=== PATIENT | male | born 1955 | race Caucasian/White ===

== ENCOUNTER 2017-06-06 05:00 | Inpatient (IN) ==
[2017-05-31 13:15] LABS: Appearance,Urine CLEAR; Bilirubin,Urine NEG (NEG); Color,Urine YELLOW; Glucose,Urine (UA) NEGATIVE (NEG); Leukocyte Esterase,Urine NEG /uL (NEG); Nitrate,Urine NEG (NEG); Protein,Urine NEG (NEG); Specific Gravity,Urine 1.014 (1.000-1.035); Urine Blood NEG mg/dL (<0.03); Urobilinogen,Urine NEG (NEG)
[2017-05-31 13:22] LABS: Basophils # (Auto) 0.1 K/mcL (0.0-0.3); Basophils % (Auto) 0.6 % (0.0-2.0); Eosinophils # (Auto) 0.3 K/mcL (0.0-0.7); Eosinophils % (Auto) 3.3 % (0.0-7.0); Granulocytes % (Auto) 60.2 % (38.0-78.0); Lymphocytes # (Auto) 2.3 K/mcL (1.5-4.8); Lymphocytes % (Auto) 26.6 % (15.5-49.0); Mean Cell Volume 93.4 fL (80.0-100.0); Mean Corpuscular Hemoglobin 31.8 pg (26.0-34.0); Monocytes # (Auto) 0.8 K/mcL (0.1-0.9); Monocytes % (Auto) 9.3 % (1.0-12.0); Platelet Count 274 K/mcL (140-440); RBC 4.83 M/mcL (4.50-5.90); Red Cell Distribution Width 12.4 % (11.5-14.5)
[2017-05-31 13:28] LABS: Blood Urea Nitrogen 13 mg/dl (8-23)
[~2017-06-06 05:00] MED LIST: CELECOXIB 200 MG CAPSULE PO SCH; PREGABALIN 75 MG CAPSULE PO SCH; ceFAZolin 1 GM VIAL IV SCH; oxyCODONE 10 MG TAB.ER.12H PO SCH
[2017-06-06] MEDS ORDERED: PHENYLEPHRINE 10 MG/ML VIAL IV ONE (07:35)
[2017-06-06] MEDS ORDERED: TRANEXAMIC ACID 1,000 MG/10 ML VIAL IV ONE (07:35)
[2017-06-06] MEDS ORDERED: PROPOFOL 200 MG/20 ML VIAL IV ONE (07:35)
[2017-06-06] MEDS ORDERED: LIDOCAINE HCL/PF 100 MG/5 ML SYRINGE IV ONE (07:35)
[2017-06-06] MEDS ORDERED: DEXAMETHASONE 10 MG/ML VIAL IV ONE (07:35)
[2017-06-06] MEDS ORDERED: ONDANSETRON 4 MG/2 ML VIAL IV ONE (07:35)
[2017-06-06] MEDS ORDERED: MIDAZOLAM 2 MG/2 ML VIAL IV ONE (07:35)
[2017-06-06] MEDS ORDERED: HEPARIN 10,000 UNIT/ML VIAL IR ONE (08:12)
--- NOTE | 2017-06-06 09:05 | Brief Operative Note ---
Date of procedure: 06/06/17 Pre-op diagnosis: Left hip severe DJD Post-op diagnosis: same Procedure: Left total hip arthroplasty Grafts/Implants: Yes (Depuy Trilock 4 std stem, +1.5 36 delta head, 52 cup, neutral altrx liner) Anesthesia: spinal, GLMA Findings: arthritis Complications: none Surgeon: Jose Roberto Willis Head Packager: Caden Cline Estimated blood loss (cc): 100 Specimens Removed/Pathology: none sent Condition: stable Disposition: PACU
[2017-06-06] MEDS ORDERED: POLYETHYLENE GLYCOL 3350 17 GM PACKET PO PRN (09:10)
[2017-06-06] MEDS ORDERED: FLEETS ADULT ENEMA PR PRN (09:10)
[2017-06-06] MEDS ORDERED: ONDANSETRON 4 MG/2 ML VIAL IV PRN ×2 (09:10→09:26)
[2017-06-06] MEDS ORDERED: BISACODYL 10 MG SUPP.RECT PR PRN (09:10)
[2017-06-06] MEDS ORDERED: KETOROLAC 30 MG/ML VIAL IV PRN (09:10)
[2017-06-06] MEDS ORDERED: HYDROmorphone 2 MG/ML SYRINGE IV PRN (09:10)
[2017-06-06] MEDS ORDERED: BENZOCAINE/MENTHOL 1 LOZENGE PO PRN ×2 (09:10→09:26)
[2017-06-06] MEDS ORDERED: MAGNESIUM HYDROXIDE 30 ML ORAL.SUSP PO PRN (09:10)
[2017-06-06] MEDS ORDERED: TRANEXAMIC ACID 1,000 MG/10 ML VIAL IV SCH (09:10)
[2017-06-06] MEDS ORDERED: NITROGLYCERIN 0.4 MG TAB.SUBL SL PRN (09:14)
[2017-06-06] MEDS ORDERED: METHOCARBAMOL 1,000 MG/10 ML VIAL IV PRN (09:26)
[2017-06-06] MEDS ORDERED: fentaNYL 100 MCG/2 ML VIAL IV PRN (09:26)
[2017-06-06] MEDS ORDERED: NALOXONE HCL 0.4 MG/ML VIAL IV PRN (09:26)
[2017-06-06] MEDS ORDERED: PROMETHAZINE 25 MG/ML VIAL IV PRN (09:26)
[2017-06-06] MEDS ORDERED: FLUMAZENIL 0.1 MG/ML ML IV PRN (09:26)
[2017-06-06] MEDS ORDERED: IPRATROPIUM/ALBUTEROL 3 ML AMPUL.NEB NEB PRN (09:26)
[2017-06-06] MEDS ORDERED: diphenhydrAMINE 50 MG/ML VIAL IV PRN (09:26)
[2017-06-06] MEDS ORDERED: MEPERIDINE 25 MG/ML SYRINGE IV PRN (09:26)
[2017-06-06] MEDS ORDERED: LACTATED RINGERS 250 ML IV PRN (09:26)
[2017-06-06] MEDS ORDERED: LACTATED RINGERS 1,000 ML IV SCH (09:30)
--- NOTE | 2017-06-06 09:50 | XRay Report ---
CLINICAL INFORMATION: Postsurgical follow-up TECHNIQUE: AP pelvis. AP and crosstable lateral portable left hip COMPARISON: None. FINDINGS: Status post left total hip arthroplasty. Alignment is anatomic. There is postsurgical soft tissue gas. There are skin afsaneh overlying the left hip. Incidental note is made of vascular calcification IMPRESSION: Status post left total hip arthroplasty Interpreted and Authenticated by: Allen Pathak 06/06/17
[2017-06-06] MEDS: 0.9 % SODIUM CHLORIDE 1,000 ML IV SCH ×2 (10:20→17:55)
--- NOTE | 2017-06-06 11:04 | Operative Note ---
DATE OF OPERATION: 06/06/2017 PREOPERATIVE DIAGNOSIS: Left hip severe osteoarthritis. POSTOPERATIVE DIAGNOSIS: Left hip severe osteoarthritis. PROCEDURE PERFORMED: Left total hip arthroplasty through direct anterior approach placing a DePuy Tri-Lock size 4 standard offset femoral stem, a +1.5, 36 mm delta ceramic head ball, a 52 Paxton cup with a neutral liner and a 36 mm delta ceramic head. SURGEON: Jose Roberto Willis MD. CRANIOLOGIST: Maxi Cline PA-C. ANESTHESIA: Spinal plus general. DRAINS: None. SPECIMENS: Femoral head and reamings, which were discarded. BLOOD LOSS: 150 mL COMPLICATIONS: None. POSTOPERATIVE CONDITION: Stable. INDICATIONS FOR SURGERY: This is a 61-year-old male who has had progressive worsening left hip pain. Radiographs showed severe buab-lh-qfci osteoarthritis. He had a history of a right total hip arthroplasty a couple years ago done by [facility] from which he had a very good result. FINDINGS AT SURGERY: Severe arthritis. Post implantation showed good equalization of leg length and offset. PROCEDURE IN DETAIL: The patient had been seen preoperatively. Informed consent had been obtained after discussion of risks and benefits of surgery. Risks including, but not limited to, bleeding, possibly requiring transfusion; infection, possibly requiring implant removal and prolonged IV antibiotics; injury to nerves, blood vessels, and other surrounding structures; anesthetic risks; incomplete or no resolution of symptoms; leg length discrepancy; dislocation; fracture; DVT and pulmonary embolus risks; and the possibility of needing further surgery. He understood these risks and wished to proceed. Correct operative site was marked in preoperative holding and patient received spinal anesthesia. He was then taken to the operating room and general anesthesia induced. He was carefully positioned on the fracture table and then the left hip and groin were carefully prepped and draped in normal sterile fashion and a time-out was performed verifying patient name, operative site, and plan. Standard anterior approach incision was made with a scalpel through skin and subcutaneous tissue. Hemostasis was obtained with Bovie cautery. Careful blunt dissection was taken down to the tensor fascia and then we undermined circumferentially. IrriSept was irrigated and then a ring retractor was placed. Tensor fascia was incised in line with the muscle fibers and then careful blunt dissection was taken medial to the muscle belly. Blunt cobra retractors were placed on the superior and inferior neck. We identified the circumflex vessels, coagulated and then cut them and split the vastus fascia distally. He had a fairly large reflected head of the rectus attached to the anterior capsule was released and then performed an anterior capsulectomy, released capsule out towards the greater trochanter and down towards the lesser. Three turns of traction were placed on the leg and then a corkscrew was placed in the femoral head. Osteotome was used under fluoro to identify our proximal neck cut and then oscillating tip saw was used to make our osteotomy. The leg was then externally rotated 45 degrees and then the labrum was removed circumferentially with cautery. We also removed soft tissue from the floor of the acetabulum. We started reaming directly medializing and increased reamer size until 51 mm reamer got rim ream. We opened a 52 3-hole Paxton cup. IrriSept was irrigated in the acetabulum. After a minute we copiously pulse lavaged. The cup was then impacted between 35 to 40 degrees of inclination and about 25 degrees of anteversion. We got excellent press-fit. We went ahead and placed a center hole cover and 36 neutral liner. The leg was externally rotated and capsule released around the posterior neck. We then released traction and the leg was extended and adducted. Capsule was released out towards the greater trochanter and then a box osteotome was used to gain canal entry. An awl was used to identify canal trajectory and a rongeur and rasp were used to lateralize and we sequentially broached up to a size 3. We calcar planed down onto the 3. A +1.5, 36 head ball was placed. The hip was reduced. AP pelvis was taken to verify neutral rotation and AP of the nonoperative and operative hips were taken. He was lengthened and the stem appeared undersized and not seated fully and a little bit of varus, so we redislocated and re-exposed the left hip. We removed the trial stem and rongeured and rasped to lateralize more. We then were able to impact the 3 down further. We then went up to a size 4. We calcar planed down a little bit onto the 4 and then replaced 1.5 standard offset head. Hip was reduced without excessive tension this time. Overlay revealed equal offset and leg length. The stem also appeared to be appropriately sized and positioned. We redislocated, removed the trial and the size 4 stem was opened. I irrigated the femoral canal with IrriSept and after a minute copiously pulse lavaged with saline and then we impacted the 4 stem. This seated right down at our neck cut so we opened a +1.5, 36 mm delta head ball. The stem was carefully cleaned and dried and then head ball was briskly impacted onto the stem with multiple blows of the mallet. The hip was reduced and final fluoro images were taken and saved and printed it. We then irrigated with IrriSept, after a minute pulse lavaged. Running #1 Vicryl was used for the tensor fascia, one running proximal and one running distal. We removed our ring retractor and did another IrriSept irrigation, after a minute another pulse lavage and then fat was tacked to fascia with Vicryl and then 2-0 Monocryl was used for subcutaneous and afsaneh for skin. Xeroform and sterile dressing were applied. The patient was then awakened, extubated, and transferred to recovery in stable condition. BJB:dalia Job ID: [id number] Doc ID: [id number] Jose Roberto Willis MD
[2017-06-06] MEDS: HYDROcodone/APAP 10/325MG TABLET PO PRN ×3 (11:54→20:15)
[2017-06-06] MEDS: 0.9 % SODIUM CHLORIDE 10 ML SYRINGE IV SCH ×2 (13:01→20:19)
[2017-06-06] MEDS: ceFAZolin 1 GM VIAL IV SCH ×2 (14:55→22:37)
[2017-06-06] MEDS: DOCUSATE SODIUM 100 MG CAPSULE PO SCH (20:15)
[2017-06-06] MEDS: ASPIRIN 325 MG ENTERIC COATED TABLET PO SCH (20:15)
[2017-06-06] MEDS: LISINOPRIL 20 MG TABLET PO SCH (20:15)
[2017-06-06] MEDS: CARVEDILOL 3.125 MG TABLET PO SCH (20:15)
[2017-06-06] MEDS ORDERED: GABAPENTIN 300 MG CAPSULE PO SCH (21:00)
[2017-06-06] MEDS ORDERED: DULoxetine 30 MG CAPSULE PO SCH (21:00)
[2017-06-06] MEDS ORDERED: METHOCARBAMOL 750 MG TABLET PO PRN (21:00)
[2017-06-06] MEDS ORDERED: diphenhydrAMINE 25 MG CAPSULE PO PRN (21:00)
[2017-06-06] MEDS ORDERED: SENNOSIDES 1 TABLET PO SCH (21:00)
[2017-06-06] MEDS ORDERED: ATORVASTATIN 20 MG TABLET PO SCH (21:00)
[2017-06-07] MEDS: HYDROcodone/APAP 10/325MG TABLET PO PRN ×3 (00:28→09:04)
[2017-06-07] MEDS: 0.9 % SODIUM CHLORIDE 1,000 ML IV SCH (04:32)
[2017-06-07] MEDS: 0.9 % SODIUM CHLORIDE 10 ML SYRINGE IV SCH (06:02)
[2017-06-07] MEDS ORDERED: PANTOPRAZOLE 40 MG TABLET PO SCH (07:30)
--- NOTE | 2017-06-07 08:00 | Discharge Summary ---
Providers - Providers Patient information: Note initiated : 06/07/17 at 7:57 am Service Date, if different from initiated Date: [] Patient: Robb Peters 61 y/o M admitted on 06/06/17 for Left Total Anterior Hip Arthroplasty. Chief Complaint: [] Discharge date: 06/07/17 Hospitalization Hospital course: Pt underwent a L total hip arthroplasty. He was admitted on day of procedure. He spent one night on the floor for IV pain meds, IV abx and PT. Discharge diagnosis: L hip osteoarhrosis Exam - Exam Clean and dry: Yes Weight bearing status: as tolerated Ortho Discharge - CHRISTINE - Patient Instructions Diet: Regular Diet Activity: activity as tolerated Total Hip Protocol: Follow activity instructions as provided by Physical Therapy. Dressing Care: May shower in 2 days Patient Education: Minimally Invasive Total Hip Replacement (DC) Additional Instructions: Discharge Instructions: Do the exercises at home that physical therapy gave you. You are scheduled to start physical therapy at [facility] ([phone]) on May. Take your prescription, photo ID, insurance cards, and current medication list with you to your first physical therapy appointment. Take your prescription to pickling operator any medication or equipment (such as walker, crutches, toilet riser or C.P.M.) Wear comfortable clothing for your physical therapy. Weight bearing as tolerated. You have the Aquacel Ag dressing, leave in place for 7 days then remove. If dressing becomes soiled (turns black), remove and use gauze 4x4 dressing and silvasorb ointment and change daily. Keep incision clean and dry. You may start showering on post op day #2. To avoid constipation while taking any narcotic pain medication, take an over the counter stool softener/laxative. Use ice packs as directed, on for 20 minutes at a time throughout the day. This and elevation will help with pain and swelling. Call your physician for fevers above 100.5 or pain not controlled by medication. Your prescriptions are with your discharge information. Some medications were electronically transmitted to your pharmacy of choice. - Follow Up Plan Follow Up Appointments: Jose Roberto Willis MD [Physician] - 06/21/17 1:40 pm Disposition: Home, Self-Care Prognosis: Good Rehab Potential: Good Overall status at discharge: patient is progressing back to baseline - Orders For Discharge Prescriptions: Aspirin [Ecotrin] 325 mg PO BID #60 tab.ec HYDROcodone/APAP 10/325MG [[place] 10/325Mg] 1 - 2 tab PO Q4HP PRN #90 tab PRN Reason: Pain Level 3-6 Pending Studies Resuscitation Status Full Code Diet Regular Diet Start SunJun 06 912 Hydrocodone Bitart/Acetaminophen ([place] 10/325mg) 0 tab PO Q4HP PRN PRN Reason: PAIN LEVEL 3-6 Last Admin: 06/07/17 04:39 Dose: 2 tab Admin: 06/07/17 00:28 Dose: 2 tab Admin: 06/06/17 20:15 Dose: 2 tab Admin: 06/06/17 16:08 Dose: 2 tab Admin: 06/06/17 11:54 Dose: 2 tab Aspirin (Ecotrin) 325 mg PO BID [facility] Last Admin: 06/06/17 20:15 Dose: 325 mg Atorvastatin Calcium (Lipitor) 20 mg PO [facility] Last Admin: 06/06/17 20:14 Dose: 20 mg Carvedilol (Coreg) 3.125 mg PO BID [facility] Last Admin: 06/06/17 20:15 Dose: 3.125 mg Docusate Sodium (Colace) 100 mg PO BID [facility] Last Admin: 06/06/17 20:15 Dose: 100 mg Duloxetine HCl (Cymbalta) 60 mg PO [facility] Last Admin: 06/06/17 20:14 Dose: 60 mg Gabapentin (Neurontin) 300 mg PO HS [facility] Last Admin: 06/06/17 20:15 Dose: 300 mg Sodium Chloride (Sodium Chloride 0.9%) 1,000 mls @ 125 mls/hr IV .Q8H [facility] Last Admin: 06/07/17 04:32 Dose: Admin: 06/06/17 17:55 Dose: Admin: 06/06/17 10:20 Dose: 125 mls/hr Lisinopril (Zestril) 20 mg PO BID [facility] Last Admin: 06/06/17 20:15 Dose: 20 mg Methocarbamol (Robaxin) 1,500 mg PO [facility] PRN PRN Reason: Spasms Last Admin: 06/06/17 20:15 Dose: 1,500 mg Pantoprazole Sodium (Protonix) 40 mg PO QAMAC [facility] Last Admin: 06/07/17 07:55 Dose: 40 mg Senna (Senokot) 2 tab PO HS [facility] Last Admin: 06/06/17 20:15 Dose: 2 tab Sodium Chloride (Saline Flush) 10 ml IV Q8 [facility] Last Admin: 06/07/17 06:02 Dose: 10 ml Admin: 06/06/17 20:19 Dose: 10 ml Admin: 06/06/17 13:01 Dose: Not Given Shift Summary 06/07/17 04:22 Shift Summary by Mari Hancock Pt doing well. Alert and oriented. Up with SBA and FWW. No sensation or inclination to void until just after 0400. He had bladder scanned for around 600 , voided 400. Medicated with 2 tabs [place] just about every 4 hours for pain. Received HSprn dose of Robaxin. Ice pack used. Requested AV boots off midway through night. Drsg to left hip, CDI. 18G to LFA patent. Should d/c home today. Initialized on 06/07/17 04:22 - END OF NOTE
[2017-06-07] MEDS: CARVEDILOL 3.125 MG TABLET PO SCH (09:03)
[2017-06-07] MEDS: ASPIRIN 325 MG ENTERIC COATED TABLET PO SCH (09:03)
[2017-06-07] MEDS: DOCUSATE SODIUM 100 MG CAPSULE PO SCH (09:04)
[2017-06-07] MEDS: LISINOPRIL 20 MG TABLET PO SCH (09:04)
== END 2017-06-07 10:55 | disposition home or self-care (01) | DRG 470 ==
LOC: MEDSUR 05:00
PROVIDERS: ADMIT Orthopaedic Surgery; ATTEND Orthopaedic Surgery